=== PATIENT | male | born 1960 | race Caucasian/White ===

== ENCOUNTER 2019-09-22 15:16 | Emergency (ER) | payer OTHER ==
[2019-09-22 15:30] VITALS: BP 148/93; PULSE 88
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
--- NOTE | 2019-09-22 16:43 | CT ---
CT chest Technique: Multiple axial sections through the chest were obtained. Intravenous contrast was not utilized. Findings: Visualized upper abdominal structures shows prior cholecystectomy. No other discrete abnormality is appreciated. No pericardial thickening is seen. Aorta shows no aneurysm. Mediastinum and hilar region show no adenopathy. Minimal coronary artery calcification is noted. No axillary adenopathy is seen. Lung window settings were reviewed. No acute parenchymal change is seen. No pleural effusions or pneumothorax is seen. Bone window settings were reviewed which shows slight degenerative change scattered within the spine. Previous cervical spine surgery is noted. No acute osseous finding is appreciated. Prior right shoulder surgery is noted. Impression: 1. Findings believed to be incidental as described above. 2. Nothing acute is appreciated on CT study of the chest. Diagnostic code #2 This report was dictated in MDT
== END 2019-09-22 17:10 | disposition home or self-care (01) ==
LOC: JD.ED 15:16
DX: R07.89 Other chest pain (principal); R07.81 Pleurodynia; I10 Essential (primary) hypertension; Z88.6 Allergy status to analgesic agent; Z88.8 Allergy status to other drugs, medicaments and biological substances
CPT/HCPCS: 71250; 71250-26; 99282; 99285-25